=== PATIENT | female | born 1970 | race Caucasian/White ===

== ENCOUNTER 2017-09-15 20:39 | Emergency (ER) | payer BC ==
[~2017-09-15] VITALS: Ht 162.6 cm; Wt 76.5 kg
[2017-09-15 20:46] VITALS: BP 131/87; PULSE 95; RESP 14; TEMP 98.9; O2SAT 96
[2017-09-15] MEDS ORDERED: ADHD MED (21:00)
[2017-09-15] MEDS ORDERED: ANTIDEPRESSANT (21:00)
[2017-09-15] MEDS ORDERED: PROPARACAINE HCL 0.5% OPHT SOLN 15 ML BTL EACH EYE ONE (21:15)
[2017-09-15] MEDS ORDERED: ACETAMINOPHEN/HYDROcodone 325 MG/5 MG TAB PO ONE (21:30)
[2017-09-15] MEDS ORDERED: POLY10O EACH EYE (21:40)
[2017-09-15] MEDS ORDERED: TRAM50 PO (21:41)
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
== END 2017-09-15 22:33 | disposition home or self-care (01) ==
LOC: PHEFT 20:39
DX: T65.891A Toxic effect of other specified substances, accidental (unintentional), initial encounter (principal); T26.92XA Corrosion of left eye and adnexa, part unspecified, initial encounter; T26.91XA Corrosion of right eye and adnexa, part unspecified, initial encounter; F90.9 Attention-deficit hyperactivity disorder, unspecified type; F32.9 Major depressive disorder, single episode, unspecified; Z72.0 Tobacco use; Y93.E8 Activity, other personal hygiene
CPT/HCPCS: 99283